=== PATIENT | male | born 1995 ===

== ENCOUNTER 2022-04-09 02:36 | Emergency (ER) | payer OTHER ==
[2022-04-09 02:43] VITALS: BP 151/99
== END 2022-04-09 05:48 | disposition left against medical advice (07) ==
LOC: ED 02:36
DX: R11.10 Vomiting, unspecified (principal); J02.9 Acute pharyngitis, unspecified; Z53.21 Procedure and treatment not carried out due to patient leaving prior to being seen by health care provider